=== PATIENT | female | born 1955 | race Caucasian/White ===

== ENCOUNTER → 2017-08-28 | Emergency (ER) | payer OTHER ==
[~2017-08-28] VITALS: Ht 165.1 cm; Wt 90.7 kg
[~2017-08-28] MED LIST: ATACAND HCT 11 UDTA1; CEFUROXIME500 MG PO; DILTIAZEM 24HR240 MG; SINGULAIR10 MG; URIN D.S. TABL1 EACH PO
== END | disposition home or self-care (01) ==
LOC: ER 21:32
DX: N39.0 Urinary tract infection, site not specified (principal)

== ENCOUNTER 2021-08-29 19:19 | Emergency (ER) | payer OTHER ==
[~2021-08-29] VITALS: Ht 165.1 cm; Wt 90.7 kg
[2021-08-29] MEDS ORDERED: DICLOFENAC SODI75 MG PO (20:23)
[2021-08-29] MEDS ORDERED: VOLTAREN ARTHRI20 GM TOP (20:23)
== END 2021-08-29 20:54 | disposition home or self-care (01) ==
LOC: ER 19:19
DX: M25.561 Pain in right knee (principal)

== ENCOUNTER 2023-02-06 13:51 | Inpatient (IN) | payer OTHER ==
[~2023-02-06] VITALS: Ht 165.1 cm; Wt 90.7 kg
[~2023-02-06 13:51] MED LIST changes: +DICLOFENAC SODI75 MG PO; +VOLTAREN ARTHRI20 GM TOP
[2023-02-06] MEDS ORDERED: SINGULAIR10 MG PO (14:38)
[2023-02-06] MEDS ORDERED: GLUMETZA500 MG (14:39)
[2023-02-06] MEDS ORDERED: DILTIAZEM 24HR240 MG (14:39)
[2023-02-06] MEDS ORDERED: CANDESARTAN CILE8 MG (14:39)
[2023-02-06] MEDS ORDERED: CRESTOR5 MG PO (14:39)
== END 2023-02-14 15:13 | disposition home or self-care (01) | DRG 203 ==
LOC: ER 13:51 → MEDJ 22:59
PROVIDERS: ADMIT Internal Medicine; ATTEND Internal Medicine
PROC: BW24YZZ Computerized Tomography (CT Scan) of Chest and Abdomen using Other Contrast (ICD-10-PCS; principal; 2023-02-11)
DX: J45.41 Moderate persistent asthma with (acute) exacerbation (principal); R09.02 Hypoxemia; I10 Essential (primary) hypertension; E11.9 Type 2 diabetes mellitus without complications; Z79.4 Long term (current) use of insulin; Z20.822 Contact with and (suspected) exposure to COVID-19